=== PATIENT | female | born 1980 | race Caucasian/White ===

== ENCOUNTER 2017-12-20 15:46 | Emergency (ER) | payer OTHER ==
[~2017-12-20] VITALS: Ht 162.6 cm; Wt 63.5 kg
[2017-12-20 16:44] LABS: BASOPHILS ABSOLUTE AUTO 0.02 K/mm3 (0.00-0.23); BASOPHILS PERCENT AUTO 0 % (0-2); EOSINOPHILS PERCENT AUTO 4 % (0-6); Hematocrit 37.7 % (33.0-51.0); Hemoglobin 13.1 g/dL (11.5-16.0); IMMATURE GRAN ABSOLUTE AUTO 0.01 K/mm3 (0.00-0.10); IMMATURE GRAN PERCENT AUTO 0 % (0-1); LYMPHOCYTES ABSOLUTE AUTO 1.44 K/mm3 (0.84-5.20); LYMPHOCYTES PERCENT AUTO 31 % (21-46); MONOCYTES ABSOLUTE AUTO 0.32 K/mm3 (0.16-1.47); MONOCYTES PERCENT AUTO 7 % (4-13); Mean Corpuscular HGB 34.7 pg (26.0-34.0); Mean Corpuscular HGB Conc 34.7 g/dL (31.5-36.5); Mean Corpuscular Volume 100 fL (80-100); Mean Platelet Volume 9.9 fL (9.1-12.4); NEUTROPHILS PERCENT AUTO 58 % (41-73); Platelet Count 207 K/mm3 (150-400); RDW Coefficient Variation 12.1 % (11.7-14.2); Red Blood Cell Count 3.77 M/mm3 (3.80-5.20); White Blood Cell Count 4.69 K/mm3 (4.00-11.30)
[2017-12-20 17:10] LABS: Troponin I <0.015 ng/mL (0.000-0.040)
[2017-12-20 17:46] LABS: Alanine Aminotransfer (ALT/SGP 62 U/L (12-78); Albumin, Blood 4.3 g/dL (3.4-5.0); Albumin/Globulin Ratio 1.5 (0.8-1.8); Alk Phos 90 U/L (50-136); Anion Gap 6 mmol/L (6-16); Aspartate Aminotrans (AST/SGOT 25 U/L (12-37); Bilirubin, Total 0.4 mg/dL (0.1-1.0); Blood Urea Nitrogen 9 mg/dL (8-24); Bun/Creatinine Ratio 8.8 (12.0-20.0); CO2, Blood 29 mmol/L (21-32); Calcium, Blood 8.9 mg/dL (8.5-10.1); Chloride, Blood 106 mmol/L (98-108); Creatinine, Blood 1.02 mg/dL (0.40-1.00); Globulin, Blood 2.8 g/dL (2.2-4.0); Glomerular Filtration Rate >60 (60-); Glucose, Blood 90 mg/dL (70-99); Potassium, Blood 4.1 mmol/L (3.5-5.5); Sodium, Blood 141 mmol/L (136-145); Total Protein, Blood 7.1 g/dL (6.4-8.2)
[2017-12-20] MEDS ORDERED: CYCL10 PO (19:56)
[2017-12-20] MEDS ORDERED: Ultram50 MG PO (19:56)
== END 2017-12-20 20:21 | disposition home or self-care (01) ==
LOC: ER 15:46
PROVIDERS: Internal Medicine
DX: R51 Headache (principal); Z88.0 Allergy status to penicillin; Z88.6 Allergy status to analgesic agent; Z88.8 Allergy status to other drugs, medicaments and biological substances
CPT/HCPCS: 71046; 80053; 84484; 85025; 93005; 93010; 96374; 96375; 96376; 99283-25; J1100; J1200; J1885; J2405

== ENCOUNTER 2022-01-23 20:28 | Emergency (ER) | payer OTHER ==
[~2022-01-23] VITALS: Ht 162.6 cm; Wt 63.5 kg
[~2022-01-23 20:28] MED LIST: CYCL10 PO; Ultram50 MG PO
== END 2022-01-23 21:39 | disposition home or self-care (01) ==
LOC: ER 20:28
DX: S16.1XXA Strain of muscle, fascia and tendon at neck level, initial encounter (principal); Z88.0 Allergy status to penicillin; Z88.6 Allergy status to analgesic agent; Z88.8 Allergy status to other drugs, medicaments and biological substances; X58.XXXA Exposure to other specified factors, initial encounter
CPT/HCPCS: J1885

== ENCOUNTER 2023-04-03 11:56 | Day surgery (SDC) | payer OTHER ==
[~2023-04-03] VITALS: Ht 162.6 cm; Wt 58.3 kg
[~2023-04-03 11:56] MED LIST changes: +AIMOVIG AU140 MG/1 M; +ALBU90OI; +AMAN100; +Cyclobenzaprine5 MG; +DULO30; +EZET10; +FURO20; +GABA400; +HYDHCL25; +ICOSAPENT ETHYL1 GM; +Imitrex100 MG; +METF500C; +METPHE5; +NAPR500; +POTA10T; +Prilosec10 M1; +Primidone50 MG; +ROSU5; +STEGLATRO5 MG; +TRAM50; +Triamcinolone A15 G3
[2023-04-03] MEDS ORDERED: AJOVY AUTO225 MG/1.1 (12:53)
[2023-04-03 14:20] VITALS: BP 96/76
--- NOTE | 2023-04-03 14:23 | NUR ---
04/03/23 1423 Taylor Burnette IV, DC'K[place]vin AT 1403/CATHETER WNL
== END 2023-04-03 14:17 | disposition home or self-care (01) ==
LOC: ORSCSDS 11:56
PROVIDERS: Specialist
PROC: 0DB78ZX Excision of Stomach, Pylorus, Via Natural or Artificial Opening Endoscopic, Diagnostic (ICD-10-PCS; principal; 2023-04-03 13:30)
PROC: 0DBN8ZX Excision of Sigmoid Colon, Via Natural or Artificial Opening Endoscopic, Diagnostic (ICD-10-PCS; principal; 2023-04-03 13:30)
PROC: 0DB58ZX Excision of Esophagus, Via Natural or Artificial Opening Endoscopic, Diagnostic (ICD-10-PCS; principal; 2023-04-03 13:30)
DX: Z12.11 Encounter for screening for malignant neoplasm of colon (principal); D13.0 Benign neoplasm of esophagus; R10.13 Epigastric pain; D12.5 Benign neoplasm of sigmoid colon; K29.70 Gastritis, unspecified, without bleeding; K76.0 Fatty (change of) liver, not elsewhere classified; Z79.899 Other long term (current) drug therapy
CPT/HCPCS: 82947; 88305; 88342; J2704; J7120

== ENCOUNTER → 2023-09-09 | Outpatient (CLI) | payer OTHER ==
[~2023-09-09] MED LIST changes: +AJOVY AUTO225 MG/1.1
== END | disposition home or self-care (01) ==
LOC: LAB SHORT 15:56 → LAB 15:56
DX: H60.502 Unspecified acute noninfective otitis externa, left ear (principal)
CPT/HCPCS: 87070; 87077; 87186; 87205